=== PATIENT | female | born 1950 | race Caucasian/White ===

== ENCOUNTER 2016-04-26 10:09 | Outpatient (CLI) | payer MEDICARE, OTHER ==
[2016-04-26 11:34] LABS: ALT (SGPT) 22 U/L (0-55); AST (SGOT) 20 U/L (5-34); Alkaline Phosphatase 72 U/L (40-150); Anion Gap 13 mmol/L (10-20); BUN (Urea Nitrogen) 12 mg/dL (9.8-20.1); Bilirubin, Total 0.2 mg/dL (0.2-1.2); Calc. Creatinine Clearance 0 mL/min (70-130); Calcium 9.1 mg/dL (7.8-10.44); Carbon Dioxide 27 mmol/L (23-31); Chloride 108 mmol/L (98-107); Estimated GFR-MDRD 65; Globulin 2.3 g/dL (2.4-3.5); LDL Cholesterol, Calculated 51 mg/dL
[2016-04-26 12:30] LABS: Hemoglobin A1c 6.7 % (4.0-6.0)
[2016-04-26 12:38] LABS: #Basophils 0.1 thou/uL (0.0-0.2); #Eosinphils 0.4 thou/uL (0.0-0.7); #Lymphocytes 1.5 thou/uL (1.20-3.40); #Monocytes 0.5 thou/uL (0.11-0.59); #Neutrophils 3.9 thou/uL (1.40-6.50); %Eosinophils 6.3 % (0.0-10.0); %Monocytes 8.1 % (0.0-10.0); Hematocrit 39.9 % (36.0-47.0); White Blood Cell (WBC) Count 6.4 thou/uL (4.8-10.8)
[2016-04-26 18:27] LABS: Microalbumin Urine Less than 1.0 mg/dL (0.5-50.0)
== END 2016-04-26 10:10 | disposition home or self-care (01) ==
LOC: HPCALD 10:09
PROVIDERS: ATTEND Family Medicine
DX: E11.43 Type 2 diabetes mellitus with diabetic autonomic (poly)neuropathy (principal)
CPT/HCPCS: 36415; 80053; 80061; 82043; 83036; 84443; 85025

== ENCOUNTER 2017-05-15 10:17 | Outpatient (CLI) | payer MEDICARE, MEDICAID | END 2017-05-15 10:18 | disposition home or self-care (01) | LOC: BUREKG 10:17 | PROVIDERS: ATTEND Family Medicine | DX: R07.89 Other chest pain (principal) | CPT/HCPCS: 93005; 93010 ==

== ENCOUNTER 2018-12-03 10:20 | Outpatient (CLI) | payer MEDICARE, MEDICAID ==
--- NOTE | 2018-12-03 17:12 | RAD ---
RIGHT KNEE TWO VIEWS: Date: 12-03-18 FINDINGS: No fracture or joint effusion was seen. Medial joint space narrowing is present. Osteophytes are real ly not very prominent except perhaps for some tiny ones in the patellofemoral area. No fracture or pe riosteal reaction was seen. IMPRESSION: No acute findings. Definite medial joint space narrowing. POS: HOME
== END 2018-12-03 10:21 | disposition home or self-care (01) ==
LOC: BURRAD 10:20 → EEVIPCON 10:20 → BURRAD 10:21
PROVIDERS: ATTEND Nurse Practitioner Family
DX: M25.561 Pain in right knee (principal); M25.861 Other specified joint disorders, right knee